=== PATIENT | male | born 1965 | race Caucasian/White ===

== ENCOUNTER → 2016-12-29 | Outpatient (CLI) | payer OTHER ==
[~2016-12-29] MED LIST: ASCA500 PO; ASPI81TA28 PO; FOCUS FACTOR; GARL400T4 PO
--- NOTE | 2016-12-29 08:13 | DIAGNOSTIC IMAGING REPORT ---
Brain MRI WITHOUT CONTRAST HISTORY: F09 Cognitive disorder. [id number] TECHNIQUE: Multiplanar multisequence MRI of the brain was performed without the use of contrast. COMPARISON STUDY: Brain MRI 10/24/2015. FINDINGS: No areas of restricted diffusion to suggest acute infarction. The midline structures are intact. A few small retention cysts within the right maxillary sinus are again noted. The mastoid air cells are clear. The major vascular flow-voids at the skull base are well-maintained. Stable 1.5 cm nonenhancing T2 hyperintense lesion within the lateral aspect of the left posterior fossa. This favors a small arachnoid cyst. There is no mass, hematoma, or midline shift. A single punctate focus of T2 hyperintensity within the subcortical white matter of the right parietal lobe. This is of doubtful clinical significance and favors minimal microvascular ischemic change. There is also minimal periventricular white matter T2 hyperintensity, unchanged. IMPRESSION: No significant change compared to the prior study. No acute intracranial abnormality. Electronically signed by: Calin Jarvis M.D. 12/29/2016 8:11 AM Dictated Date/Time: 12/29/2016 8:04 AM
== END | disposition home or self-care (01) ==
PROVIDERS: ATTEND Psychiatry & Neurology Neurology
DX: F09 Unspecified mental disorder due to known physiological condition (principal)

== ENCOUNTER → 2017-01-03 | Outpatient (CLI) | payer OTHER ==
[2017-01-04 05:24] LABS: RAPID PLASMA REAGIN REACTIVE (NONREACT)
[2017-01-05 06:44] LABS: RAPID PLASMA REAGIN TITRE 2 DILS (NR)
[2017-01-06 04:20] LABS: ANTI-CENTROMERE AB <1.0 NEG AI (<1.0 NEG); ANTI-SS-A <1.0 NEG AI (<1.0 NEG); ANTI-SS-B <1.0 NEG AI (<1.0 NEG); DNA ds CRITHIDIA NEGATIVE (NEGATIVE); MICROSOMAL AB <1 IU/ML (<9); Sm Antibody <1.0 NEG AI (<1.0 NEG)
[2017-01-08 05:10] LABS: 18KDIGG BAND NONREACTIVE (NONREACTIVE); 23KDIGG BAND NONREACTIVE (NONREACTIVE); 23KDIGM BAND NONREACTIVE (NONREACTIVE); 28KDIGG BAND NONREACTIVE (NONREACTIVE); 30KDIGG BAND NONREACTIVE (NONREACTIVE); 39KDIGG BAND NONREACTIVE (NONREACTIVE); 39KDIGM BAND NONREACTIVE (NONREACTIVE); 41KDIGG BAND REACTIVE (NONREACTIVE); 41KDIGM BAND REACTIVE (NONREACTIVE); 45KDIGG BAND NONREACTIVE (NONREACTIVE); 58KDIGG BAND NONREACTIVE (NONREACTIVE); 66KDIGG BAND NONREACTIVE (NONREACTIVE); 93KDIGG BAND NONREACTIVE (NONREACTIVE)
== END | disposition home or self-care (01) ==
LOC: C.LAB1850 11:18
PROVIDERS: ATTEND Internal Medicine Infectious Disease
DX: F09 Unspecified mental disorder due to known physiological condition (principal)

== ENCOUNTER 2021-11-29 05:29 | Observation (INO) ==
[2021-11-29] MEDS ORDERED: fentaNYL citrate 100 MCG/2 ML VIAL IV STA (05:50)
[2021-11-29] MEDS ORDERED: ONDANSETRON INJ 2 MG/ML 2 ML VIAL IV STA (05:50)
[2021-11-29] MEDS ORDERED: SODIUM CHLORIDE 0.9% 1000ML 1,000 ML IV STA (05:50)
[2021-11-29 06:02] LABS: Basophils # (auto) 0.04 K/uL (0-0.2); Basophils % (auto) 0.2 %; Hematocrit (blood only) 44.5 % (40.1-51.0); Hemoglobin 15.6 g/dl (14.0-18.0); Immature Granulocytes # (auto) 0.11 K/uL (0.00-0.02); Immature Granulocytes % (auto) 0.5 %; Lymphocytes # (auto) 0.31 K/uL (1.2-3.4); Lymphocytes % (auto) 1.4 %; Mean Corpuscular Hemoglobin 31.5 pg (25.0-34.0); Mean Corpuscular Hgb Conc 35.1 g/dL (32.0-36.0); Mean Corpuscular Volume 89.9 fL (80.0-100.0); Mean Platelet Volume 11.9 fL (9.4-12.4); Monocytes # (auto) 1.72 K/uL (0.24-0.82); Monocytes % (auto) 7.9 %; Neutrophils # (auto) 19.59 K/uL (1.4-6.5); Platelet Count 197 K/uL (130-400); RDW Coefficient of Variation 12.5 % (11.5-14.5); Red Blood Count 4.95 M/uL (4.63-6.08); White Blood Count 21.77 K/ul (4.8-10.8)
--- NOTE | 2021-11-29 06:22 | Emergency Department Note ---
Impression & Plan Acetabulum fracture, left, Fracture of multiple pubic rami, Closed sacral fracture, Subcapital fracture of left hip, Advanced dementia ED Provider Note CHIEF COMPLAINT: Constipation HISTORY OF PRESENT ILLNESS: This 56-year-old male patient presents to the emergency department with complaints of urinary retention and constipation. The patient suffers from dementia and presents with his . His states that he began to complain of lower abdominal pain and bloating. There is no report of vomiting. The patient appears to be uncomfortable but is not able to effectively communicate at baseline. REVIEW OF SYSTEMS: Unable to obtain full review of systems secondary to the patient's dementia ALLERGIES: see below MEDICATIONS: see below PMH: see below SOCIAL HISTORY: see below DDx:Appendicitis, testicular torsion, infections, diverticulitis, UTI, obstruction, mesenteric ischemia, aortic pathology, inflammatory bowel disease, renal colic, PUD, pancreatitis, biliary pathology, hernia, volvulus, constipation, as well as other pathologies. PHYSICAL EXAM: Vital signs reviewed. General: Chronically ill-appearing 56-year-old male, anxious. HEENT: No scleral icterus, PERRLA, neck supple. Atraumatic. Cardiovascular: Regular rate and rhythm, no extra sounds. Pulmonary: Clear to auscultation bilaterally, normal work of breathing. Abdomen: Soft, nontender, nondistended, positive bowel sounds. Musculoskeletal: Atraumatic, no peripheral edema. Pain to palpation of the L p katelyn/hip. Neurologic: Patient awake alert and mumbling/anxious. Unable to respond and/or follow commands Skin: Warm, dry, no rash EMERGENCY DEPARTMENT COURSE/MDM: This patient was evaluated and appeared to be anxious but in no distress. Rodriguez catheter was placed by nursing staff for a moderate amount of concentrated appearing urine. KUB was performed and reveals a large amount of stool throughout the colon. Patient's white blood cell count is elevated at 21,000. CT imaging of the abdomen pelvis was ordered due to the patient's pain and elevated white blood cell count. It is noted that there is a significant pelvis fracture including a blowout of the acetabulum, superior and inferior pubic ramus fracture, sacral fracture bilaterally and a subcapital fracture of the femur. After discussing this with the , she states he had"an episode" which has become more frequent for him since his dementia diagnosis. Seems to be a bit of a syncopal event and the did not feel as t timbo he injured himself. She states she checked them over and the patient did not seem to react to the pain. In fact he ambulated to the car with assistance. The patient did not seem to be himself throughout the evening at night that she attributed to constipation as it has been in the past. Patient's states he does not have the capacity to follow her commands and she is tearful and very anxious with the discussion of surgery. Dr. Coronado of orthopedics was consulted with x-rays of the hip and pelvis pending. He will evaluate the patient in the emergency department. After his discussion with the patient's , disposition will be decided upon. Case was signed out to Dr. Hartley at the change of shift pending final disposition after orthopedic consultation. MONITORING: An order for cardiac monitoring was placed and the patient is noted to be in a normal sinus rhythm at 94 or beats per minute. RADIOLOGY: See below EKG: Sinus tachycardia at 102 bpm. No PVC, no PAC. Normal ST segments. QTC is 432. DISPOSITION: still an ED patient Past Med/Surg History Medical History (Updated 11/29/21 @ 08:32 by Dominique Granado MD) Early onset Alzheimer's dementia Surgical History Hx of tonsillectomy Family History Other Coronary heart disease Social History Smoking Status: Never smoker Tobacco Type: Cigarettes Hx Alcohol Use: No Hx Substance Use: No Preferred Language: Bengali Communication Ability: Impaired Visual Impairment: No Limitations Hearing Ability: Normal Beliefs That Will Affect Care: None Current Living Situation: Family Current Living Situation Comment: Lives with sister Feels Safe at Home: Yes Assistive Devices: Glasses Allergies Allergies Allergy/AdvReac Type Severity Reaction Status Date / Time cat dander Allergy Unknown "watery Verified 09/30/20 15:15 eyes" horse dander Allergy Unknown "watery Verified 09/30/20 15:15 eyes" Home Meds Home Medications Medication Instructions Recorded Confirmed lorazepam 0.5 mg tablet 0.5 mg PO TID PRN anxiety or 08/02/20 09/30/20 agitation lorazepam 1 mg tablet 1 mg PO TID PRN Anxiety/paranoia 08/02/20 09/30/20 Previous Rx's Medication Instructions Recorded valproic acid 250 mg capsule 250 mg PO BID #60 caps 09/30/20 Results & Data (ED) Vital Signs Vital Signs - 24 hr 11/29/21 05:31 11/29/21 05:31 11/29/21 05:55 Temperature 37.4 C Temperature Source Oral Pulse Rate 101 H Pulse Rate [Apical] Pulse Rhythm Regular Pulse Rhythm [Apical] Respiratory Rate 24 Respiratory Depth Shallow Shallow Blood Pressure 116/84 Blood Pressure [Right Arm] Blood Pressure Mean 94 Blood Pressure Mean [Right Arm] Pulse Oximetry 97 Oxygen Delivery Method Room Air Room Air Oxygen Flow Rate Sepsis Recent Fever Within 48 Hours No Sepsis New/Unexplained Change in Mental Status No Sepsis Action Taken by Nursing No Action Required 11/29/21 06:23 11/29/21 06:33 11/29/21 08:00 Temperature 37 C Temperature Source Rectal Pulse Rate Pulse Rate [Apical] 91 H 90 Pulse Rhythm Pulse Rhythm [Apical] Regular Respiratory Rate 22 18 Respiratory Depth Blood Pressure Blood Pressure [Right Arm] 122/90 133/90 Blood Pressure Mean Blood Pressure Mean [Right Arm] 100 104 Pulse Oximetry 100 97 Oxygen Delivery Method Nasal Cannula Nasal Cannula Oxygen Flow Rate 3 2 Sepsis Recent Fever Within 48 Hours Sepsis New/Unexplained Change in Mental Status Sepsis Action Taken by [facility] Medications Current Medication List: was personally reviewed by me Laboratory Data Attestation: I reviewed the patient's lab results. Result diagrams: 11/29/21 05:47 11/29/21 05:47 Lab Results 11/29/21 11/29/21 11/29/21 Range/Units 05:47 05:47 05:47 WBC 21.77 H (4.8-10.8) K/ul RBC 4.95 (4.63-6.08) M/uL Hgb 15.6 (14.0-18.0) g/dl Hct 44.5 (40.1-51.0) % MCV 89.9 (80.0-100.0) fL MCH 31.5 (25.0-34.0) pg MCHC 35.1 (32.0-36.0) g/dL RDW Std Deviation 41.0 (36.4-46.3) fL RDW Coeff of Dorie 12.5 (11.5-14.5) % Plt Count 197 (130-400) K/uL MPV 11.9 (9.4-12.4) fL Immature Gran % (Auto) 0.5 % Neut % (Auto) 90.0 % Lymph % (Auto) 1.4 % [place] % (Auto) 7.9 % Eos % (Auto) 0.0 % Baso % (Auto) 0.2 % Neut # (Auto) 19.59 H (1.4-6.5) K/uL Lymph # (Auto) 0.31 L (1.2-3.4) K/uL [place] # (Auto) 1.72 H (0.24-0.82) K/uL Eos # (Auto) 0.00 (0-0.50) K/uL Baso # (Auto) 0.04 (0-0.2) K/uL Immature Gran # (Auto) 0.11 H (0.00-0.02) K/uL Sodium 135 L (136-145) mmol/L Potassium 4.3 (3.5-5.1) mmol/L Chloride 101 (98-107) mmol/L Carbon Dioxide 21 (21-32) mmol/L Anion Gap 13 H (3-11) BUN 23 (6-23) mg/dl Creatinine 1.18 (0.6-1.4) mg/dl Est Cr Clr Drug Dosing Not Reportable Est GFR ( Amer) 78.9 ml/min Est GFR (Non-Af Amer) 68.1 ml/min BUN/Creatinine Ratio 19.5 (10-20) Glucose 144 H (70-99(Fasting)) mg/dl Calcium 10.0 (8.5-10.1) mg/dl Total Bilirubin 1.3 H (0.2-1.0) mg/dl AST 50 H (13-39) U/L ALT 46 (7-52) U/L Alkaline Phosphatase 72 (34-104) U/L Troponin I High Sens 42.7 H (0-20) pg/ml Total Protein 8.0 (6.0-8.3) gm/dl Albumin 4.9 (3.4-5.0) gm/dl Globulin 3.1 (2.5-4.0) gm/dl Albumin/Globulin Ratio 1.6 (0.9-2) Lipase 13 (11-82) U/L Urine Color Dark Yellow Urine Appearance Turbid A (Clear) Urine pH 5.5 (4.5-7.5) Ur Specific [place] 1.028 (1.000-1.030) Urine Protein 1+ H (Negative) Urine Glucose (UA) Trace H (Negative) Urine Ketones 1+ H (Negative) Urine Blood Trace H (Negative) Urine Nitrite Negative (Negative) Urine Bilirubin Negative (Negative) Urine Urobilinogen Negative (Negative) Ur Leukocyte Esterase Negative (Negative) Urine WBC (Auto) 1-5 (0-5) /hpf Urine RBC (Auto) 0-4 (0-4) /hpf U Hyaline Cast (Auto) 5-10 H (0-5) /lpf U Epithel Cells (Auto) 0-5 (0-5) /lpf Urine Bacteria (Auto) 1+ H (Negative) Urine Mucus Present A (None Prsent) Urine Sperm Present A (None Prsent) SARS-CoV-2, RNA, NAAT (NEGATIVE) 11/29/21 Range/Units 06:13 WBC (4.8-10.8) K/ul RBC (4.63-6.08) M/uL Hgb (14.0-18.0) g/dl Hct (40.1-51.0) % MCV (80.0-100.0) fL MCH (25.0-34.0) pg MCHC (32.0-36.0) g/dL RDW Std Deviation (36.4-46.3) fL RDW Coeff of Dorie (11.5-14.5) % Plt Count (130-400) K/uL MPV (9.4-12.4) fL Immature Gran % (Auto) % Neut % (Auto) % Lymph % (Auto) % [place] % (Auto) % Eos % (Auto) % Baso % (Auto) % Neut # (Auto) (1.4-6.5) K/uL Lymph # (Auto) (1.2-3.4) K/uL [place] # (Auto) (0.24-0.82) K/uL Eos # (Auto) (0-0.50) K/uL Baso # (Auto) (0-0.2) K/uL Immature Gran # (Auto) (0.00-0.02) K/uL Sodium (136-145) mmol/L Potassium (3.5-5.1) mmol/L Chloride (98-107) mmol/L Carbon Dioxide (21-32) mmol/L Anion Gap (3-11) BUN (6-23) mg/dl Creatinine (0.6-1.4) mg/dl Est Cr Clr Drug Dosing Est GFR ( Amer) ml/min Est GFR (Non-Af Amer) ml/min BUN/Creatinine Ratio (10-20) Glucose (70-99(Fasting)) mg/dl Calcium (8.5-10.1) mg/dl Total Bilirubin (0.2-1.0) mg/dl AST (13-39) U/L ALT (7-52) U/L Alkaline Phosphatase (34-104) U/L Troponin I High Sens (0-20) pg/ml Total Protein (6.0-8.3) gm/dl Albumin (3.4-5.0) gm/dl Globulin (2.5-4.0) gm/dl Albumin/Globulin Ratio (0.9-2) Lipase (11-82) U/L Urine Color Urine Appearance (Clear) Urine pH (4.5-7.5) Ur Specific [place] (1.000-1.030) Urine Protein (Negative) Urine Glucose (UA) (Negative) Urine Ketones (Negative) Urine Blood (Negative) Urine Nitrite (Negative) Urine Bilirubin (Negative) Urine Urobilinogen (Negative) Ur Leukocyte Esterase (Negative) Urine WBC (Auto) (0-5) /hpf Urine RBC (Auto) (0-4) /hpf U Hyaline Cast (Auto) (0-5) /lpf U Epithel Cells (Auto) (0-5) /lpf Urine Bacteria (Auto) (Negative) Urine Mucus (None Prsent) Urine Sperm (None Prsent) SARS-CoV-2, RNA, NAAT NEGATIVE (NEGATIVE) Administered Medications Sodium Chloride (Nss 1000ml) 1,000 mls @ 125 mls/hr IV .Q8H STA Stop: 11/29/21 13:49 Last Admin: 11/29/21 06:07 Dose: 125 mls/hr Documented By: EMB Discontinued Medications Bisacodyl (Bisacodyl 10 Mg Supp) 20 mg PA NOW STA Stop: 11/29/21 06:33 Last Admin: 11/29/21 06:53 Dose: 20 mg Documented By: STU Fentanyl Citrate (Fentanyl Citrate 100 Mcg/2 Ml Vial) 25 mcg IV NOW STA Stop: 11/29/21 05:51 Last Admin: 11/29/21 06:08 Dose: 25 mcg Documented By: STU Piperacillin Sod/Tazobactam Sod (Zosyn) 4.5 gm in 120 mls @ 240 mls/hr IV NOW ONE Stop: 11/29/21 07:38 Last Admin: 11/29/21 08:11 Dose: 240 mls/hr Documented By: OL Acetaminophen (Ofirmev) 1,000 mg in 100 mls @ 400 mls/hr IV NOW STA Stop: 11/29/21 08:11 Last Admin: 11/29/21 08:11 Dose: 400 mls/hr Documented By: JUAN Ioversol (Optiray 320 100ml) 94 ml IV ONCE ONE Stop: 11/29/21 07:11 Last Admin: 11/29/21 07:13 Dose: 94 ml Documented By: YAZMIN Ondansetron HCl (Ondansetron Inj 2 Mg/Ml 2 Ml Vial) 4 mg IV NOW STA Stop: 11/29/21 05:51 Last Admin: 11/29/21 06:07 Dose: 4 mg Documented By: STU Imaging Data Radiologist's Impression: Abdomen/Pelvis CT 11/29/21 06:[address] WITH IV CONTRAST CT DOSE: 651.29 mGy.cm HISTORY: Left hip pain. Generalized abd pain, elevated WBC, dementia (advanced) TECHNIQUE: Multiaxial CT images of the abdomen and pelvis were performed following the use of intravenous contrast. A dose lowering technique was utilized adhering to the principles of ALARA. COMPARISON STUDY: None. FINDINGS: Patchy bibasilar densities favor subsegmental atelectasis. No pneumoperitoneum. No pneumatosis. Comminuted and displaced fracture of the left acetabulum with associated protrusio deformity. There are also nondisplaced fractures involving the left superior and inferior pubic ramus. There is a nondisplaced subcapital fracture of the left femoral head. Angled fracture through the S3 vertebral body which involves the bilateral sacral ala. The liver, spleen, adrenal glands, pancreas, gallbladder, and kidneys are grossly unremarkable. These are suboptimally assessed due to the motion artifact and streak artifact from the patient's overlapping arms. No retroperitoneal lymphadenopathy. Normal caliber abdominal aorta. The Rodriguez catheter within the bladder lumen. This likely accounts for the gas within the bladder. Small presacral hematoma. There is also an intramuscular hematoma within the left iliopsoas muscle likely secondary to the adjacent fracture. Soft tissue edema with a probable intramuscular hematoma within the left gluteus muscles given the asymmetric thickening. No bowel wall thickening or obstruction. Borderline dila liberty fluid-filled loop of small bowel within the deep pelvis without a clear transition point. This may represent a focal ileus given the posttraumatic findings. IMPRESSION: 1. Fractures involving the left hemipelvis, sacrum, and left femoral head as described above. 2. There are associated intramuscular hematomas within the left hip as well as a small presacral hematoma. 3. No definite bowel wall thickening or obstruction. ACT 112: Negative or not required by law. Electronically signed by: Calin Jarvis M.D. 11/29/2021 8:10 AM Chest X-Ray 11/29/21 06:33 XR chest 1V portable CLINICAL HISTORY: elevated WBC, dementia COMPARISON STUDY: Chest radiograph August 02, 2020. FINDINGS: Lung volumes are mildly diminished. No pneumothorax or pleural effusion is noted. Bibasilar opacities favor atelectasis. No evidence for pulmonary edema. Cardiomediastinal silhouette is unremarkable. Patient is rotated. IMPRESSION: Low lung volumes with bibasilar opacities that favor atelectasis. ACT 112: Negative or not required by law. Electronically signed by: Brandyn Zendejas M.D. 11/29/2021 8:15 AM Hip X-Ray 11/29/21 07:37 XR hip LT min 2V CLINICAL HISTORY: L hip fx, acetabulum COMPARISON: CT of the abdomen and pelvis November 29, 2021 at 7:09 AM. FINDINGS: Contrast and a Rodriguez balloon within the bladder from recent contrast- enhanced CT are noted. A nondisplaced subcapital left femoral fracture is better depicted on the CT. A markedly displaced, comminuted left acetabular fracture is noted which involves the anterior, posterior and medial santos of the left acetabulum. Numerous bone fragments are present. Acetabula protrusio deformity of the left hip is noted. Sacral fractures are also better depicted on CT. IMPRESSION: 1. Displaced, markedly comminuted left acetabular fracture with acetabular protrusio deformity of the left hip. 2. Nondisplaced subcapital left femoral fracture better depicted on CT performed earlier today. ACT 112: Negative or not required by law. Electronically signed by: Brandyn Zendejas M.D. 11/29/2021 8:13 AM Blood Pressure Blood Pressure Findings: Normal blood pressure Blood Pressure Disposition: did not require urgent referral Discharge Plan Visit Data Chief Complaint: Constipation ED Provider: Dominique Granado Discharge Problem: Acetabulum fracture, left, Fracture of multiple pubic rami, Closed sacral fracture, Subcapital fracture of left hip, Advanced dementia Forms Stand Alone Forms: [employer] Prescriptions Prescriptions: No Action valproic acid 250 mg capsule 250 mg PO BID Qty: 60 0RF lorazepam 1 mg tablet 1 mg PO TID PRN (Reason: Anxiety/paranoia) lorazepam 0.5 mg tablet 0.5 mg PO TID PRN (Reason: anxiety or agitation) Referrals Referrals: Daniele Bynum MD [Primary Care Provider] -
[2021-11-29 06:29] LABS: Alanine Aminotransferase 46 U/L (7-52); Albumin Globulin Ratio 1.6 (0.9-2); Albumin Level 4.9 gm/dl (3.4-5.0); Alkaline Phosphatase 72 U/L (34-104); Anion Gap 13 (3-11); Aspartate Aminotransferase 50 U/L (13-39); BUN Creatinine Ratio 19.5 (10-20); Bilirubin,Total 1.3 mg/dl (0.2-1.0); Blood Urea Nitrogen 23 mg/dl (6-23); Carbon Dioxide 21 mmol/L (21-32); Chloride 101 mmol/L (98-107); Est GFR (African American) 78.9 ml/min; Est GFR (Non-African American) 68.1 ml/min; Globulin 3.1 gm/dl (2.5-4.0); Glucose 144 mg/dl (70-99(Fasting)); Lipase 13 U/L (11-82); Potassium 4.3 mmol/L (3.5-5.1); Sodium 135 mmol/L (136-145)
[2021-11-29] MEDS ORDERED: bisacodyL 10 MG SUPP PR STA (06:32)
[2021-11-29 06:34] LABS: Appearance Urine Turbid (Clear); Bilirubin Urine Negative (Negative); Blood Urine Trace (Negative); Color Urine Dark Yellow; Glucose Urine UA Trace (Negative); Ketones Urine 1+ (Negative); Leukocyte Esterase Urine Negative (Negative); Nitrite Urine Negative (Negative); Protein Urine 1+ (Negative); Specific Gravity Urine 1.028 (1.000-1.030); Urobilinogen Urine Negative (Negative); pH Urine 5.5 (4.5-7.5)
[2021-11-29 06:35] LABS: Troponin I High Sensitivity 42.7 pg/ml (0-20)
[2021-11-29] MEDS ORDERED: PIPERACILLIN/TAZOBACTAM 4.5 GM/120 ML BAG IV ONE (07:09)
[2021-11-29] MEDS ORDERED: OPTIRAY 320 100ml IV ONE (07:10)
[2021-11-29 07:17] LABS: Epithelial Cell Urine Auto 0-5 /lpf (0-5); Mucus Urine Present (None Prsent)
[2021-11-29 07:20] LABS: Bacteria Urine Automated 1+ (Negative); RBC Urine Automated 0-4 /hpf (0-4); Sperm Urine Present (None Prsent)
[2021-11-29] MEDS ORDERED: ACETAMINOPHEN 1,000 MG/100 ML VIAL IV STA (07:57)
[2021-11-29] MEDS ORDERED: SODIUM CHLORIDE 0.9% 1000ML 500 ML IV ONE (07:57)
--- NOTE | 2021-11-29 08:11 | CT Scan Report ---
ABDOMEN AND PELVIS CT WITH IV CONTRAST CT DOSE: 651.29 mGy.cm HISTORY: Left hip pain. Generalized abd pain, elevated WBC, dementia (advanced) TECHNIQUE: Multiaxial CT images of the abdomen and pelvis were performed following the use of intrave nous contrast. A dose lowering technique was utilized adhering to the principles of ALARA. COMPARISON STUDY: None. FINDINGS: Patchy bibasilar densities favor subsegmental atelectasis. No pneumoperitoneum. No pneumato sis. Comminuted and displaced fracture of the left acetabulum with associated protrusio deformity. Th ere are also nondisplaced fractures involving the left superior and inferior pubic ramus. There is a nondisplaced subcapital fracture of the left femoral head. Angled fracture through the S3 vertebral b mark which involves the bilateral sacral ala. The liver, spleen, adrenal glands, pancreas, gallbladder , and kidneys are grossly unremarkable. These are suboptimally assessed due to the motion artifact an d streak artifact from the patient's overlapping arms. No retroperitoneal lymphadenopathy. Normal jose iber abdominal aorta. The Rodriguez catheter within the bladder lumen. This likely accounts for the gas w ithin the bladder. Small presacral hematoma. There is also an intramuscular hematoma within the left iliopsoas muscle likely secondary to the adjacent fracture. Soft tissue edema with a probable intramu scular hematoma within the left gluteus muscles given the asymmetric thickening. No bowel wall thicke rakesh or obstruction. Borderline dilated fluid-filled loop of small bowel within the deep pelvis witho ut a clear transition point. This may represent a focal ileus given the posttraumatic findings. IMPRESSION: 1. Fractures involving the left hemipelvis, sacrum, and left femoral head as described above. 2. There are associated intramuscular hematomas within the left hip as well as a small presacral darren floresita. 3. No definite bowel wall thickening or obstruction. ACT 112: Negative or not required by law. Electronically signed by: Calin Jarvis M.D. 11/29/2021 8:10 AM
--- NOTE | 2021-11-29 08:14 | Emergency Department Note ---
ED Visit Note Received this patient in signout from Dr. Granado. Patient undergoing work- up for constipation & urinary retention and evidently a fall yesterday. Was found by her to have a significant injury to the left hip/acetabulum/pelvis. Additional x-rays were obtained here and orthopedic consultation was obtained by her. Patient was seen at bedside by Dr. Coronado to discuss options in this patient with unfortunately fairly severe dementia. To exclude other traumatic injuries and with his decreased awareness due to his dementia, CT of the head a nd cervical spine were obtained. Given home dose of 1 mg oral Ativan. Discussed with Dr. Coronado who has been busy in the operating room this morning. He wished for me to talk with the family more as he is detained in the OR. Discussed with the family and patient at bedside options. I discussed with the patient although primarily the patient's and [id number] the options. Discussed staying here with a nonsurgical plan of care with limitations to ambulation in the future versus transfer to a trauma orthopedic center for possible evaluation for surgical repair. Discussed risks and benefits. Patient's states she is just in shock and really does not think he did well with the surgery and is not inclined to pursue this at this point. She felt comfortable staying here at this time with a nonsurgical option at this point. .
--- NOTE | 2021-11-29 08:15 | XRay Report ---
XR hip LT min 2V CLINICAL HISTORY: L hip fx, acetabulum COMPARISON: CT of the abdomen and pelvis November 29, 2021 at 7:09 AM. FINDINGS: Contrast and a Rodriguez balloon within the bladder from recent contrast-enhanced CT are noted . A nondisplaced subcapital left femoral fracture is better depicted on the CT. A markedly displaced, comminuted left acetabular fracture is noted which involves the anterior, posterior and medial santos of the left acetabulum. Numerous bone fragments are present. Acetabula protrusio deformity of the le ft hip is noted. Sacral fractures are also better depicted on CT. IMPRESSION: 1. Displaced, markedly comminuted left acetabular fracture with acetabular protrusio deformity of the left hip. 2. Nondisplaced subcapital left femoral fracture better depicted on CT performed earlier today. ACT 112: Negative or not required by law. Electronically signed by: Brandyn Zendejas M.D. 11/29/2021 8:13 AM
--- NOTE | 2021-11-29 08:16 | XRay Report ---
XR chest 1V portable CLINICAL HISTORY: elevated WBC, dementia COMPARISON STUDY: Chest radiograph August 02, 2020. FINDINGS: Lung volumes are mildly diminished. No pneumothorax or pleural effusion is noted. Bibasilar opacities favor atelectasis. No evidence for pulmonary edema. Cardiomediastinal silhouette is unrema rkable. Patient is rotated. IMPRESSION: Low lung volumes with bibasilar opacities that favor atelectasis. ACT 112: Negative or not required by law. Electronically signed by: Brandyn Zendejas M.D. 11/29/2021 8:15 AM
--- NOTE | 2021-11-29 08:24 | XRay Report ---
XR pelvis 1-2V routine CLINICAL HISTORY: pelvis fx COMPARISON: CT of the abdomen and pelvis November 29, 2021 at 7:09 AM. FINDINGS: Markedly comminuted, displaced left acetabular fracture is noted with acetabular protrusio deformity. Fractures involve the medial, anterior and posterior santos of the left acetabulum. Nondis placed fractures of the left femoral head superior and inferior pubic rami are better depicted on CT as are multiple sacral fractures. There is a small amount of contrast and a Rodriguez balloon within the bladder. No proximal right femoral fracture is present. IMPRESSION: 1. Markedly comminuted, displaced left acetabular fracture with acetabular protrusio deformity. 2. Nondisplaced fractures of the left femoral head, left pubic rami and sacrum which are better depic liberty on the CT of the abdomen and pelvis. ACT 112: Negative or not required by law. Electronically signed by: Brandyn Zendejas M.D. 11/29/2021 8:22 AM
--- NOTE | 2021-11-29 08:39 | XRay Report ---
KUB HISTORY: abd bloating, constipation, urine retention COMPARISON: None. FINDINGS: The bowel gas pattern is unremarkable. There are no dilated loops of small bowel to suggest an obstruction. No renal calculi. No ureteral calculi. No pneumoperitoneum or pneumatosis. Moderate well-formed stool seen within the colon. Left femoral head/acetabular fracture again noted. IMPRESSION: 1. Moderate well-formed stool seen within the colon. 2. Left femoral head/acetabular fracture again noted. ACT 112: Negative or not required by law. Electronically signed by: Calin Jarvis M.D. 11/29/2021 8:37 AM
[2021-11-29] MEDS ORDERED: LORazepam 1 MG TAB PO STA (09:31)
--- NOTE | 2021-11-29 09:43 | CT Scan Report ---
HEAD CT NONCONTRAST CT DOSE: 1304.69 mGy.cm HISTORY: fall TECHNIQUE: Multiaxial CT images of the head were performed without the use of intravenous contrast. A utomated exposure control was utilized for this study. A dose lowering technique was utilized adheri ng to the principles of ALARA. Comparison: Head CT 09/30/2020. Findings: The paranasal sinuses and mastoid air cells are clear. The calvarium and skull base are int act. There is no mass, hematoma, midline shift, acute infarct. Atrophy and microvascular ischemic ángel nges are again noted. There is progressive dilatation of the lateral and third ventricles compared to the prior studies. Residual contrast within the brain from the recent abdomen and pelvis CT. This re sults in suboptimal evaluation for an intracranial abnormality. Impression: 1. No acute intracranial hemorrhage or acute infarct. 2. Mild ventriculomegaly is again noted. This has slightly progressed in the interval. Therefore, thi s raises the possibility of normal pressure hydrocephalus. ACT 112: Negative or not required by law. Electronically signed by: Calin Jarvis M.D. 11/29/2021 9:42 AM
--- NOTE | 2021-11-29 09:46 | CT Scan Report ---
CERVICAL SPINE CT CT DOSE: HISTORY: fall TECHNIQUE: Multiaxial CT images of the cervical spine were performed and reformatted in the sagittal and coronal plane without the use of contrast. A dose lowering technique was utilized adhering to th e principles of ALARA. COMPARISON: None. FINDINGS: No fractures. No subluxation. Prevertebral soft tissues and the C1-C2 interval are intact. No pneumothorax. IMPRESSION: No fractures within the cervical spine. ACT 112: Negative or not required by law. Electronically signed by: Calin Jarvis M.D. 11/29/2021 9:44 AM
[2021-11-29] MEDS ORDERED: MoRPHine SULFATE 2 MG/ML CARP IV PRN (12:00)
[2021-11-29] MEDS ORDERED: SODIUM CHLORIDE 0.9% 1000ML 1,000 ML IV SCH (12:00)
--- NOTE | 2021-11-29 12:00 | Electrocardiogram Report ---
Test Reason : Blood Pressure : / mmHG Vent. Rate : 102 BPM Atrial Rate : 102 BPM P-R Int : 150 ms QRS Dur : 074 ms QT Int : 332 ms P-R-T Axes : 069 082 060 degrees QTc Int : 432 ms Poor data quality, interpretation may be adversely affected Sinus tachycardia Otherwise normal ECG When compared with ECG of 30-SEP-2020 15:01, QRS duration has decreased Confirmed by Catrachito Mayer ([id number]) on 11/29/2021 11:59:47 AM Referred By: Confirmed By:Catrachito Mayer
--- NOTE | 2021-11-29 12:08 | History & Physical Report ---
Date of Service November 29, 2021 Assessment & Plan (1) Sepsis secondary to UTI: Plan: Has been complaining of urinary retention and constipation for some time Noted to have tachycardia, UA suggestive of infection and increased white count Sepsis likely secondary to UTI Urine and blood cultures were taken Started with intravenous Zosyn and IV fluid Lactate was 3 on admission we will recheck (2) Fall: Plan: He is usually ambulant without any significant help at home Has had a fall this morning and suffered fracture in the left hemipelvis as mentioned below (3) Fracture of pelvis, closed: Plan: Has markedly comminuted, displaced left acetabular fracture with acetabular probe protrusio deformity Nondisplaced fractures of the left femoral head, left pubic rami and sacrum Case discussed with on-call orthopedic surgeon by the ER physician and the plan was to keep the patient over here and continue with conservative management as the and the [id number] do not want to have any immediate surgery Discussion about transferring the patient to trauma center was raised but the and the [id number] wanted to wait Discussed about waiting in this hospital before being transferred to the trauma center and the effect of subsequent outcome of surgery with the and the [id number] We will continue with conservative management for now Ortho has been consulted (4) Acetabulum fracture, left: (5) Fracture of multiple pubic rami: (6) Closed sacral fracture: (7) Early onset Alzheimer's dementia: Plan: History of early onset dementia with behavioral disturbances He is noncommunicative Has been under 24-hour care at home by the caregiver, his DVT prophylaxis SCDs CODE STATUS Full code for now and the family member will be deciding further criteria on that Plan He was transferred to Trauma center at [facility] History of Present Illness Chief Complaint: Status post fall with fracture of left hemipelvis, sacrum and left femoral head Primary Care Provider: Daniele Bynum MD He is a 56-year-old male with significant past medical history of early onset Alzheimer's dementia with behavioral disturbances and requires 24 hours care at home by the caregiver and history of paranoia apparently has had a fall which resulted fracture of the left hemipelvis as mentioned in the pelvis x-ray. Apparently he has history of constipation and has been complaining of retention of urine recently. The history was taken from the as the patient is noncommunicative secondary to severe dementia. He needs 24-hour care at home which is given by his at home. He can feed himself with some help and does not have any problem with swallowing and he ambulates without any any assistance most of the time. He has sepsis secondary to UTI and noted to have markedly comminuted, displaced left acetabular fracture with acetabular protrusion deformity, nondisplaced fracture of the left femoral head, left pelvic rami and sacrum fracture as well. The and the [id number] decided the patient to be here in this hospital and they are not in favor of no surgery immediately. Allergies Allergy/AdvReac Type Severity Reaction Status Date / Time cat dander Allergy Unknown "watery Verified 11/29/21 14:57 eyes" horse dander Allergy Unknown "watery Verified 11/29/21 14:57 eyes" Home Medications Medication Instructions Recorded Confirmed Type lorazepam 0.5 mg tablet 0.5 mg PO TID PRN anxiety 08/02/20 11/29/21 History lorazepam 1 mg tablet 1 mg PO TID PRN Anxiety/paranoia 08/02/20 11/29/21 History valproic acid 250 mg capsule 250 mg PO BID #60 caps 09/30/20 11/29/21 Rx ascorbic acid (vitamin C) 500 mg 500 mg PO DAILY 11/29/21 11/29/21 History tablet (Vitamin C) aspirin 81 mg tablet,delayed 81 mg PO DAILY 11/29/21 11/29/21 History release cholecalciferol (vitamin D3) 25 25 mcg PO DAILY 11/29/21 11/29/21 History mcg (1,000 unit) tablet (Vitamin D3) multivitamin 1 tab PO DAILY 11/29/21 11/29/21 History Past Med/Surg History Medical History (Updated 11/29/21 @ 12:48 by Dante John MD) Early onset Alzheimer's dementia Surgical History Hx of tonsillectomy Family History Other Coronary heart disease Social History Smoking Status: Never smoker Tobacco Type: Cigarettes Hx Alcohol Use: No Hx Substance Use: No Preferred Language: Slovenian Communication Ability: Impaired Visual Impairment: No Limitations Hearing Ability: Normal Beliefs That Will Affect Care: None Current Living Situation: Family Current Living Situation Comment: Lives with sister Feels Safe at Home: Yes Assistive Devices: Glasses Review of Systems Review of Systems: Unobtainable due to cognitive status Physical Exam Physical Exam: Lying in bed with some anxiety and moaning at times Constitutional: + ill appearing and average body habitus Eyes: PERRL, conjunctivae normal, anicteric sclerae ENMT: external ear and nose normal, oropharynx normal Neck: trachea midline, no thyromegaly Respiratory: no respiratory distress Auscultation: lungs clear to auscultation bilaterally Cardiovascular: Rate/Rhythm: regular rate, regular rhythm and + tachycardic Heart Sounds: normal S1 and normal S2; no murmur Gastrointestinal (Abdomen): Inspection/Auscultation: normal bowel sounds; abdomen not distended Percussion/Palpation: abdomen soft Musculoskeletal: No acute arthritis in any joint, lower extremity joints especially hip joints were not examined because of multiple fractures. Neurologic: Alert and awake. Noncommunicative secondary to severe dementia Lymphatic: no cervical or axillary lymphadenopathy Results & Data Results & Data ([facility]) Vital Signs (Past 12 Hours) Vital Signs Temp Pulse Pulse Resp BP BP Pulse Ox 11/29/21 10:00 100 H 18 118/83 97 11/29/21 08:00 90 18 133/90 97 11/29/21 06:33 37 C 11/29/21 06:23 91 H 22 122/90 100 11/29/21 05:55 11/29/21 05:31 37.4 C 101 H 24 116/84 97 O2 Del Method O2 Flow Rate 11/29/21 10:00 Nasal Cannula 2 11/29/21 08:00 Nasal Cannula 2 11/29/21 06:33 11/29/21 06:23 Nasal Cannula 3 11/29/21 05:55 Room Air 11/29/21 05:31 Room Air Laboratory Results Short CBC 11/29/21 Range/Units 05:47 WBC 21.77 H (4.8-10.8) K/ul Hgb 15.6 (14.0-18.0) g/dl Hct 44.5 (40.1-51.0) % Plt Count 197 (130-400) K/uL BMP 11/29/21 05:47 Sodium 135 L Potassium 4.3 Chloride 101 Carbon Dioxide 21 BUN 23 Creatinine 1.18 Glucose 144 H Calcium 10.0 Liver Function 11/29/21 Range/Units 05:47 Total Bilirubin 1.3 H (0.2-1.0) mg/dl AST 50 H (13-39) U/L ALT 46 (7-52) U/L Alkaline Phosphatase 72 (34-104) U/L Albumin 4.9 (3.4-5.0) gm/dl Urine 11/29/21 Range/Units 05:47 Urine Color Dark Yellow Urine Appearance Turbid A (Clear) Urine pH 5.5 (4.5-7.5) Ur Specific [place] 1.028 (1.000-1.030) Urine Protein 1+ H (Negative) Urine Glucose (UA) Trace H (Negative) Medications Administered Current Inpatient Medications Sodium Chloride (Nss 1000ml) 1,000 mls @ 125 mls/hr IV .Q8H STA Stop: 11/29/21 13:49 Last Admin: 11/29/21 06:07 Dose: 125 mls/hr Piperacillin Sod/Tazobactam (Sod 4.5 gm/ Dextrose) 120 mls @ 30 mls/hr IV Q8H JOSY; Protocol Stop: 12/04/21 11:59 Sodium Chloride (Nss 1000ml) 1,000 mls @ 125 mls/hr IV .Q8H JOSY Stop: 11/30/21 11:59 Miscellaneous (Patient's Height &/Or Weight Needed) 1 each N/A Q30M JOSY Stop: 12/29/21 11:59 Morphine Sulfate (Morphine Sulfate 2 Mg/Ml Carp) 2 mg IV Q4H PRN PRN Reason: Pain Stop: 12/13/21 11:59 Code Status & VTE Plan VTE Prophylaxis Plan VTE Prophylaxis will be ordered: Yes
--- NOTE | 2021-11-29 12:55 | Communication Note ---
Date of Service: November 29, 2021 The patient has severe dementia secondary to early Alzheimer's disease. He will need 24-hour caregiver at the bedside. Dr Marc watt
[2021-11-29] MEDS: Patient's HEIGHT &/or WEIGHT Needed SCH ×2 (14:23→15:10)
[2021-11-29] MEDS ORDERED: PIPERACILLIN/TAZOBACTAM 3.375 GM in DEXTROSE 5% 100 ML IV SCH (14:30)
[2021-11-29] MEDS ORDERED: VALPROIC ACID SOLN 250 MG/5 ML UDC PO STA (17:09)
--- NOTE | 2021-11-29 17:11 | Emergency Department Note ---
ED Visit Note I was asked by the hospitalist, Dr. John, to assist with disposition of this patient as the family had changed their mind in regards to the patient's potential for surgery when he was doing his admission H&P. I did discuss this with the patient's at the bedside and she states that she would like the patient to be evaluated at [facility] for further evaluation. I did discuss the case again with the on-call orthopedic surgeon who is familiar with the patient's case, Dr. Coronado, who states that the patient's fracture pattern is very complex and he would not be an optimal candidate for surgery here by our orthopedic team. Given the patient's fracture pattern with multiple sacral fractures in addition to blowout fracture of left acetabulum and left hip fracture, I did discuss the case as a trauma consultation with [facility], case was discussed with Dr. Vasquez, who did accept the patient for ground transfer and trauma consultation and likely orthopedic consultation to determine whether or not the patient is an operative candidate. Patient's at the bedside was in agreement with above plan and signed consent for transfer. Patient was transferred in stable condition for further care and trauma consultation at [facility] via ALS ground. .
--- NOTE | 2021-11-29 17:39 | Orthopedic Consultation ---
Date of Service November 29, 2021 Assessment & Plan (1) Fracture of pelvis, closed: (2) Acetabulum fracture, left: (3) Fracture of multiple pubic rami: (4) Closed sacral fracture: (5) Subcapital fracture of left hip: -Discussed treatment plan w/ ED team and family at bedside. Discussed surgical vs non-surgical management of fractures i.e. prohibitive weightbearing x 6-8 weeks if surgery is not pursued vs transfer to tertiary care center for full trauma evaluation and Ortho-trauma evaluation regarding his candidacy for and appropriateness of surgery. Family decided they would like him to be transferred to a tertiary center for definitive evaluation and treatment. He will be transferred to [facility] as a trauma alert. Pt seen and discussed w/ Dr. Coronado History of Present Illness Reason for Consultation: Pelvic fracture, Hip fracture, Sacral Fracture . Requesting Physician: Edita John MD . 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 Work up consisted of a CT abd/pelvis which was significant for a severely comminuted acetabular fracture as well as nondisplaced L pubi rami and sacral fractures as well as non displaced L femoral head fracture. He reportedly ambulated under his own power to the vehicle when he was brought to the ER. History is unclear as to whether or not he fell but his describes episodes of syncope that he has been dealing with lately. Orthopedics consulted for recommendations regarding his fracture. Allergies Allergy/AdvReac Type Severity Reaction Status Date / Time cat dander Allergy Unknown "watery Verified 11/29/21 14:57 eyes" horse dander Allergy Unknown "watery Verified 11/29/21 14:57 eyes" Home Medications Medication Instructions Recorded Confirmed Type lorazepam 0.5 mg tablet 0.5 mg PO TID PRN anxiety 08/02/20 11/29/21 History lorazepam 1 mg tablet 1 mg PO TID PRN Anxiety/paranoia 08/02/20 11/29/21 History valproic acid 250 mg capsule 250 mg PO BID #60 caps 09/30/20 11/29/21 Rx ascorbic acid (vitamin C) 500 mg 500 mg PO DAILY 11/29/21 11/29/21 History tablet (Vitamin C) aspirin 81 mg tablet,delayed 81 mg PO DAILY 11/29/21 11/29/21 History release cholecalciferol (vitamin D3) 25 25 mcg PO DAILY 11/29/21 11/29/21 History mcg (1,000 unit) tablet (Vitamin D3) multivitamin 1 tab PO DAILY 11/29/21 11/29/21 History Past Med/Surg History Medical History (Updated 11/29/21 @ 12:48 by Dante John MD) Early onset Alzheimer's dementia Surgical History Hx of tonsillectomy Family History Other Coronary heart disease Social History Smoking Status: Never smoker Tobacco Type: Cigarettes Hx Alcohol Use: No Hx Substance Use: No Preferred Language: Paraguayan Communication Ability: Impaired Visual Impairment: No Limitations Hearing Ability: Normal Beliefs That Will Affect Care: None Current Living Situation: Family Current Living Situation Comment: Lives with sister Feels Safe at Home: Yes Assistive Devices: Glasses Review of Systems All systems reviewed & are unremarkable except as noted in HPI & below. Physical Exam General: Chronically ill 56 y/o/m resting in bed in NAD. Minimally interactive on evaluation . LLE: Leg is shortened and internally rotated. No overt pain with passive log roll or palpation of groin. Distally N/V/I. Results & Data Results & Data Laboratory Results Reviewed . Diagnostic Findings Reviewed imaging and agree w/ radiology reports . PG Care Time/CCT Total # of Minutes Spent Total Time Spent with Patient: Total time spent is greater than 50% in coordination of care (as documented) at patient's floor/unit and/or counseling patient: Coding Level of Care Code 84514 Inpt Consult Level 3 Diagnoses Fracture of pelvis, closed S32.9XXA Acetabulum fracture, left S32.402A Fracture of multiple pubic rami S32.599A Closed sacral fracture S32.10XA Subcapital fracture of left hip S72.012A
[2021-11-29] MEDS ORDERED: VALPROIC ACID SOLN 250 MG/5 ML UDC PO SCH (21:00)
--- NOTE | 2021-12-15 09:24 | Discharge Summary ---
Date of Service November 29, 2021 Admission HPI Per Admitting Provider He is a 56-year-old male with significant past medical history of early onset Alzheimer's dementia with behavioral disturbances and requires 24 hours care at home by the caregiver and history of paranoia apparently has had a fall which resulted fracture of the left hemipelvis as mentioned in the pelvis x-ray. Apparently he has history of constipation and has been complaining of retention of urine recently. The history was taken from the as the patient is noncommunicative secondary to severe dementia. He needs 24-hour care at home which is given by his at home. He can feed himself with some help and does not have any problem with swallowing and he ambulates without any any assistance most of the time. He has sepsis secondary to UTI and noted to have markedly comminuted, displaced left acetabular fracture with acetabular protrusion deformity, nondisplaced fracture of the left femoral head, left pelvic rami and sacrum fracture as well. The and the [id number] decided the patient to be here in this hospital and they are not in favor of no surgery immediately. Admission Exam Per Admitting Provider Physical Exam: Lying in bed with some anxiety and moaning at times Constitutional: + ill appearing and average body habitus Eyes: PERRL, conjunctivae normal, anicteric sclerae ENMT: external ear and nose normal, oropharynx normal Neck: trachea midline, no thyromegaly Respiratory: no respiratory distress Auscultation: lungs clear to auscultation bilaterally Cardiovascular: Rate/Rhythm: regular rate, regular rhythm and + tachycardic Heart Sounds: normal S1 and normal S2; no murmur Gastrointestinal (Abdomen): Inspection/Auscultation: normal bowel sounds; abdomen not distended Percussion/Palpation: abdomen soft Musculoskeletal: No acute arthritis in any joint, lower extremity joints especially hip joints were not examined because of multiple fractures. Neurologic: Alert and awake. Noncommunicative secondary to severe dementia Lymphatic: no cervical or axillary lymphadenopathy Principal Diagnosis Fall with Multiple Pelvic fracture Discharge Exam Lying in bed with some anxiety and moaning at times Constitutional + ill appearing and average body habitus Eyes PERRL, conjunctivae normal, anicteric sclerae ENMT external ear and nose normal, oropharynx normal Neck trachea midline, no thyromegaly Respiratory no respiratory distress Auscultation: lungs clear to auscultation bilaterally Cardiovascular Rate/Rhythm: regular rate, regular rhythm and + tachycardic Heart Sounds: normal S1 and normal S2; no murmur Gastrointestinal (Abdomen) Inspection/Auscultation: normal bowel sounds; abdomen not distended Percussion/Palpation: abdomen soft Lymphatic no cervical or axillary lymphadenopathy Discharge Data Allergies Allergy/AdvReac Type Severity Reaction Status Date / Time cat dander Allergy Unknown "watery Verified 11/29/21 14:57 eyes" horse dander Allergy Unknown "watery Verified 11/29/21 14:57 eyes" Consultations 11/29/21 11:09 ED Decision to Admit Stat 11/29/21 12:03 Consult Orthopedic Surgery Routine Ordered Studies 11/29/21 06:33 CT Abd and Pelvis [CT abd pelvis IV con only] Stat 11/29/21 08:11 CT cervical spine wo con Stat CT head/brain wo con Stat Hospital Course (1) Sepsis secondary to UTI: Has been complaining of urinary retention and constipation for some time Noted to have tachycardia, UA suggestive of infection and increased white count Sepsis likely secondary to UTI Urine and blood cultures were taken Started with intravenous Zosyn and IV fluid Lactate was 3 on admission we will recheck (2) Fall: He is usually ambulant without any significant help at home Has had a fall this morning and suffered fracture in the left hemipelvis as mentioned below (3) Fracture of pelvis, closed: Has markedly comminuted, displaced left acetabular fracture with acetabular probe protrusio deformity Nondisplaced fractures of the left femoral head, left pubic rami and sacrum Case discussed with on-call orthopedic surgeon by the ER physician and the plan was to keep the patient over here and continue with conservative management as the and the [id number] do not want to have any immediate surgery Discussion about transferring the patient to trauma center was raised but the and the [id number] wanted to wait Discussed about waiting in this hospital before being transferred to the trauma center and the effect of subsequent outcome of surgery with the and the [id number] We will continue with conservative management for now Ortho has been consulted (4) Acetabulum fracture, left: (5) Fracture of multiple pubic rami: (6) Closed sacral fracture: (7) Early onset Alzheimer's dementia: History of early onset dementia with behavioral disturbances He is noncommunicative Has been under 24-hour care at home by the caregiver, his DVT prophylaxis SCDs CODE STATUS Full code for now and the family member will be deciding further criteria on that Plan He was transferred to Trauma center at [facility] Total Time Total Time Spent Total Time Spent (In Minutes): 20 minutes Discharge Plan Discharge Items Patient Disposition: Transfer Acute Care Hospital Reason For Visit: fall with pelvis fracture Medications and DC Order Prescriptions: No Action valproic acid 250 mg capsule 250 mg PO BID Qty: 60 0RF multivitamin Tablet 1 tab PO DAILY aspirin [Aspirin Low-Strength] 81 mg Tablet,Delayed Release (Dr/Ec) 81 mg PO DAILY ascorbic acid (vitamin C) [Vitamin C] 500 mg Tablet 500 mg PO DAILY cholecalciferol (vitamin D3) [Vitamin D3] 25 mcg (1,000 unit) Tablet 25 mcg PO DAILY Rx Instructions: pt using spray lorazepam 1 mg tablet 1 mg PO TID PRN (Reason: Anxiety/paranoia) lorazepam 0.5 mg tablet 0.5 mg PO TID PRN (Reason: anxiety ) Admission Data Admit Date/Time: 11/29/21 11:54 Attending Provider: Dante John Admit Provider: Dante John Primary Care Provider: Daniele Bynum Other Providers: Michael Coronado
== END 2021-11-29 21:47 | disposition short-term general hospital (02) ==
LOC: ED 05:29 → EDINP 11:54 → INTOOBSV 11:54 → EDINP 19:48